=== PATIENT | female | born 1995 | race Asian ===

== ENCOUNTER → 2024-12-15 10:54 | Outpatient (REF) | payer OTHER, SELFPAY ==
[2024-12-15 19:41] LABS: Rubella Positive
[2024-12-15 20:14] LABS: Hepatitis B Surface Antibody Positive
[2024-12-17 13:31] LABS: Quantiferon Mitogen minus NIL 9.89 IU/mL; Quantiferon NIL 0.11 IU/mL; Quantiferon Plus TB1 minus NIL 0.08 IU/mL (<=0.34); Quantiferon Plus TB2 minus NIL 0.03 IU/mL (<=0.34); Quantiferon TB Gold Plus Negative (Negative)
== END ==
LOC: OHS 10:54
PROVIDERS: ATTENDING PHYSICIAN Nurse Practitioner Family
DX: Z23 Encounter for immunization (principal)
CPT/HCPCS: 36415; 86480; 86706; 86735; 86762; 86765